=== PATIENT | female | born 1995 | race Caucasian/White ===

== ENCOUNTER 2016-06-08 09:06 | Emergency (ER) | payer OTHER ==
[2016-06-08 09:12] VITALS: BP 104/75; PULSE 75; RESP 18; TEMP 98.1; O2SAT 97
--- NOTE | 2016-06-08 09:41 | EDPHY ---
H & P Stated Complaint: slipped on ice getting out of car at 0730/hit back of head / no loc/had "spo HPI/ROS: Chief complaint: Head injury History of present illness: This is a 21-year-old female who presents to the emergency department for a head injury. Approximately 2 hours ago patient slipped on ice falling backwards and struck the back of her head against the ground. There was no loss of consciousness. However she did see spots.She became nauseated and had 1 episodes of vomiting. She has developed a mild headache. She states all other symptoms have resolved. She denies other associated signs or symptoms including no report of trauma to or pain in the neck, back, chest, abdomen, pelvis or extremities. No report of paresthesias, weakness or paralysis or bowel or bladder dysfunction. Review of systems: A 10 point review of systems was obtained and other than described above was negative - Personal History LMP (Females 10-55): 8-14 Days Ago Current Tetanus/Diphtheria Vaccine: Yes - Medical/Surgical History Hx Asthma: No Hx Chronic Respiratory Disease: No Hx Diabetes: No Hx Cardiac Disease: No Hx Renal Disease: No Hx Cirrhosis: No Hx Alcoholism: No Hx HIV/AIDS: No Hx Splenectomy or Spleen Trauma: No Other PMH: denies - Social History Smoking Status: Never smoked - Physical Exam Exam: General Appearance: Alert, nontoxic Eyes: PERRLA. ENT: No hemotympanum, no collins sign, no raccoon eyes Respiratory: Lungs clear to auscultation bilaterally Cardiac: Regular rate and rhythm. Gastrointestinal: Soft, nondistended, nontender. Neurological: Alert and oriented x4. Cranial nerves 2-12 grossly intact. Strength and sensation intact and symmetrical. Patient is ambulating without difficulty. Skin: No lesions consistent with trauma noted. Musculoskeletal: Head is normocephalic, atraumatic. The spine is nontender to palpation along its entire length, there is no crepitus, no bony deformity, no step-off. Patient moving all extremities without difficulty. Constitutional: Initial Vital Signs Temperature (C) 36.7 C 06/08/16 09:09 Heart Rate 75 06/08/16 09:09 Respiratory Rate 18 06/08/16 09:09 Blood Pressure 104/75 06/08/16 09:09 O2 Sat (%) 97 06/08/16 09:09 O2 Delivery Mode Room Air Allergies/Adverse Reactions: No Known Allergies Allergy (Unverified 06/08/16 09:08) Home Medications: Medication Instructions Recorded NK [No Known Home Meds] 06/08/16 Medical Decision Making ED Course/Re-evaluation: Patient seen under the supervision of my secondary supervising physician Dr. Kaiden Vivar. Patient presents to the emergency department for evaluation and treatment of a head injury. On presentation she is nontoxic. She is afebrile and vital signs are stable. She has a benign physical exam including a nonfocal neurologic exam. At this time I do not believe imaging studies are warranted. I believe she is safe for discharge home. However, I have had a lengthy discussion on head injury precautions and return to emergency department precautions. Patient voiced understanding and agreement with plan. Differential Diagnosis: Included but not limited to soft tissue injury, minor head injury, concussion, unlikely bony fracture or intracranial bleed Departure - Departure Disposition: Home, Routine, Self-Care Clinical Impression: Concussion Condition: Good Instructions: Concussion (ED) Additional Instructions: Follow-up with a primary care doctor this week for recheck If symptoms worsen or new symptoms develop including worsening headache, return of nausea and vomiting, numbness or tingling anywhere in the body or trouble moving parts of the body or other signs or symptoms return to the emergency department for recheck Referrals: [place],. [Primary Care Provider] - As per Instructions [facility] [Outside] - As per Instructions Stand Alone Forms: School Excuse
== END 2016-06-08 09:48 | disposition home or self-care (01) ==
DX: S06.0X0A Concussion without loss of consciousness, initial encounter (principal); W00.0XXA Fall on same level due to ice and snow, initial encounter